=== PATIENT | male | born 1980 | race Caucasian/White ===

== ENCOUNTER 2017-03-05 10:48 | Emergency (ER) | payer SELFPAY ==
[2017-03-05 16:02] VITALS: BP 147/94
--- NOTE | 2017-03-05 18:23 | Emergency Department Report ---
Entered by BASIL ABAD, acting as scribe for RADHA MISHRA NP. ED Back Pain/Injury HPI - General Chief Complaint: Back Pain/Injury Stated Complaint: BACK PAIN Time Seen by Provider: 03/05/17 14:36 Source: patient Limitations: No Limitations - History of Present Illness Initial Comments: This is a 36 y/o male, nontoxic, well nourished in appearance, no acute signs of distress with no significant PMHx presents with an acute episode of upper back pain that began 1 day ago. Patient states he was stretching yesterday at home, which caused his upper back pain. Rates pain a 7/10 in severity, which he describes as pressure in quality. Aggravated with movement and alleviated with nothing. Denies back injury/trauma, pop sensation, fever, chills, chest pain, SOB, [place] or dizziness, numbness, stiff neck, and tingling. Notes he's been having intermittent back pain for the past 2 years. NKDA. JOSHI Complaint: back pain Onset/Timin -: days(s) Similar Symptoms Previously: No Place: home Radiation: none Severity: moderate Severity scale (0 -10): 7 Quality: other (pressure) Consistency: constant Improves With: none Worsens With: movement Context: other (while stretching) Associated Symptoms: denies other symptoms. denies: confusion, weakness, chest pain, numbness, difficulty walking, cough, difficulty urinating, diaphoresis, incontinence, fever/chills, constipation, headaches, abdominal pain, loss of appetite, malaise, nausea/vomiting, rash, seizure, shortness of breath, syncope - Related Data Previous Rx's Medication Instructions Recorded Last Taken Type Cyclobenzaprine [Flexeril] 10 mg PO TID PRN #15 tablet 03/05/17 Unknown Rx Ibuprofen [Motrin 600 MG tab] 600 mg PO Q8H PRN #30 tablet 03/05/17 Unknown Rx Allergies Allergy/AdvReac Type Severity Reaction Status Date / Time No Known Allergies Allergy Unverified 03/05/17 12:16 ED Review of Systems Comment: All other systems reviewed and negative Constitutional: denies: chills, fever Eyes: denies: eye pain, eye discharge, vision change ENT: denies: ear pain, throat pain Respiratory: denies: cough, orthopnea, shortness of breath, SOB with exertion, SOB at rest, stridor, wheezing Cardiovascular: denies: chest pain, palpitations, dyspnea on exertion, orthopnea , edema, syncope, paroxysmal nocturnal dyspnea Endocrine: no symptoms reported Gastrointestinal: denies: abdominal pain, nausea, vomiting, diarrhea Genitourinary: denies: urgency, dysuria Musculoskeletal: back pain (upper back pain). denies: joint swelling, arthralgia, myalgia Skin: denies: rash, lesions Neurological: denies: headache, weakness, numbness, paresthesias Psychiatric: denies: anxiety, depression Hematological/Lymphatic: denies: easy bleeding, easy bruising ED Past Medical Hx - Past Medical History Previous Medical History?: No - Surgical History Past Surgical History?: Yes Additional Surgical History: Kidney donor. - Family History Family history: no significant - Social History Smoking Status: Never Smoker Substance Use Type: None - Medications Home Medications: Home Medications Medication Instructions Recorded Confirmed Last Taken Type Cyclobenzaprine [Flexeril] 10 mg PO TID PRN #15 tablet 03/05/17 Unknown Rx Ibuprofen [Motrin 600 MG tab] 600 mg PO Q8H PRN #30 tablet 03/05/17 Unknown Rx ED Physical Exam - General Limitations: No Limitations General appearance: alert, in no apparent distress - Head Head exam: Present: atraumatic, normocephalic - Eye Eye exam: Present: normal appearance, PERRL, EOMI. Absent: scleral icterus, conjunctival injection, nystagmus, periorbital swelling, periorbital tenderness Pupils: Present: normal accommodation - ENT ENT exam: Present: normal exam, normal orophraynx, mucous membranes moist, TM's normal bilaterally, normal external ear exam - Neck Neck exam: Present: tenderness (cervical paraspinal), full ROM. Absent: normal inspection, meningismus, lymphadenopathy, thyromegaly - Respiratory Respiratory exam: Present: normal lung sounds bilaterally. Absent: respiratory distress, wheezes, rales, rhonchi, stridor, chest wall tenderness, accessory muscle use, decreased breath sounds, prolonged expiratory - Cardiovascular Cardiovascular Exam: Present: regular rate, normal rhythm, normal heart sounds. Absent: bradycardia, tachycardia, irregular rhythm, systolic murmur, diastolic murmur, rubs, gallop - GI/Abdominal GI/Abdominal exam: Present: soft, normal bowel sounds. Absent: distended, tenderness, guarding, rebound, rigid - Extremities Exam Extremities exam: Present: normal inspection, full ROM, normal capillary refill. Absent: tenderness, pedal edema, joint swelling, calf tenderness - Back Exam Back exam: Present: full ROM, tenderness (cervical paraspinal), paraspinal tenderness (cervical). Absent: normal inspection, CVA tenderness (R), CVA tenderness (L), muscle spasm, vertebral tenderness, rash noted - Neurological Exam Neurological exam: Present: alert, oriented X3, CN II-XII intact, normal gait, reflexes normal. Absent: motor sensory deficit - Psychiatric Psychiatric exam: Present: normal affect, normal mood - Skin Skin exam: Present: warm, dry, intact. Absent: rash ED Course Vital Signs 03/05/17 03/05/17 11:56 16:02 Temperature 98.3 F Pulse Rate 67 Respiratory 16 Rate Blood Pressure 134/101 Blood Pressure 147/94 [Left] O2 Sat by Pulse 100 Oximetry - Reevaluation(s) Reevaluation #1: 03/05/17 16:20 Patient is speaking in full sentences with no signs of distress noted ED Disposition Clinical Impression: Cervical muscle strain Qualifiers: Encounter type: initial encounter Qualified Code(s): S16.1XXA - Strain of muscle, fascia and tendon at neck level, initial encounter Disposition: - TO HOME OR SELFCARE Is pt being admited?: No Does the pt Need Aspirin: No Condition: Stable Instructions: Cervical Spine Strain (ED), Ibuprofen (By mouth), Cyclobenzaprine (By mouth) Additional Instructions: Follow-up with a primary care doctor to 3-5 days or if symptoms worsen continue return to emergency room as soon as possible. Take ibuprofen and Flexeril as prescribed. Do not operate heavy machinery while taking Flexeril due to sedation Prescriptions: Cyclobenzaprine [Flexeril] 10 mg PO TID PRN #15 tablet PRN Reason: Muscle Spasm Ibuprofen [Motrin 600 MG tab] 600 mg PO Q8H PRN #30 tablet PRN Reason: Pain Referrals: PRIMARY CARE, [Primary Care Provider] - 3-5 Days RONIT LAGUNA MD [Staff Physician] - 3-5 Days [facility] [Outside] - 3-5 Days [facility] [Outside] - 3-5 Days Forms: Work/School Release Form(ED) This documentation as recorded by the andresibeJENNIFFER JASMINE,accurately reflects the service I personally performed and the decisions made by ,RADHA MISHRA, PAIN MANAGEMENT PHYSICIAN.
== END 2017-03-05 16:31 | disposition home or self-care (01) ==
LOC: ED 10:48
DX: S16.1XXA Strain of muscle, fascia and tendon at neck level, initial encounter (principal); X58.XXXA Exposure to other specified factors, initial encounter; Y93.89 Activity, other specified; Y92.89 Other specified places as the place of occurrence of the external cause; Y99.8 Other external cause status
CPT/HCPCS: 99282